=== PATIENT | female | born 1960 | race African-American/Black ===

== ENCOUNTER 2020-05-22 08:38 | Observation (INO) ==
[2020-05-22] MEDS ORDERED: Albuterol 2.5 MG/3 ML NEBULIZER IH PRN (09:26)
[2020-05-22] MEDS ORDERED: CeFAZolin Syr 2,000MG/20 ML 2,000 MG/20 ML SYRINGE IVPB ONE (09:26)
[2020-05-22] MEDS ORDERED: Ringers Solution, Lactated 1,000 ML IVC SCH (09:30)
[2020-05-22] MEDS ORDERED: Ethanol\\Acetic Acid\\Na Ace\\Ben 1,000 ML IRRIG.SOLN IR ONE (09:46)
[2020-05-22] MEDS ORDERED: Vancomycin 1,000 MG VIAL ONE (09:47)
[2020-05-22] MEDS ORDERED: Dexamethasone 4 MG/ML VIAL ONE ×2 (09:51→11:16)
[2020-05-22] MEDS ORDERED: Lidocaine -MPF 2% 2 ML VIAL ONE (09:51)
[2020-05-22] MEDS ORDERED: *HR* FentaNYL (PF) 100 MCG/2 ML VIAL ONE (10:03)
[2020-05-22] MEDS ORDERED: *HR* Midazolam HCl 2 MG/2 ML VIAL ONE (10:03)
[2020-05-22] MEDS ORDERED: Celecoxib 200 MG CAPSULE PO ONE (10:15)
[2020-05-22] MEDS ORDERED: *HR* OxyCODONE ER (12 HR) 10 MG TABLET PO ONE (10:15)
[2020-05-22] MEDS ORDERED: *HR* OxyCODONE Immed Rel 5 MG TABLET PO PRN (10:30)
[2020-05-22] MEDS ORDERED: Ondansetron 4 MG/2 ML VIAL IVP ONE (10:30)
[2020-05-22] MEDS ORDERED: Ondansetron 4 MG/2 ML VIAL ONE (11:16)
[2020-05-22] MEDS ORDERED: *HR* HYDROMORPHONE 2 MG/ML VIAL ONE (11:23)
[2020-05-22] MEDS ORDERED: Lidocaine HCL 4 ML Topical Solution (Laryng-O-Jet Kit Sterile Pak) TP ONE (11:27)
[2020-05-22] MEDS ORDERED: *HR* Labetalol 20 MG/4 ML SYRINGE IVP ONE (11:31)
[2020-05-22] MEDS: *HR* HYDROmorphone PF 0.5 MG/0.5 ML SYRINGE IVP PRN ×2 (12:37→12:47)
[2020-05-22] MEDS ORDERED: *HR* Dextrose 50 % in Water (Vial) 50 ML VIAL IVP PRN (13:44)
[2020-05-22] MEDS ORDERED: MOM Conc 10 ML UD.LIQ PO PRN (13:44)
[2020-05-22] MEDS ORDERED: *HR* Promethazine 25 MG/ML VIAL IVP PRN (13:44)
[2020-05-22] MEDS ORDERED: Naloxone 0.4 MG/ML INJ IVP PRN (13:44)
[2020-05-22] MEDS ORDERED: Dextrose Gel 15 GM/37.5 ML TUBE PO PRN ×2 (13:44)
[2020-05-22] MEDS ORDERED: Levalbuterol 1 PUFF INHALER IH PRN (13:44)
[2020-05-22] MEDS ORDERED: Sennosides 8.6 MG TABLET PO PRN (13:44)
[2020-05-22] MEDS ORDERED: D5% in Water 1,000 ML IVC PRN (13:44)
[2020-05-22 14:32] LABS: Hemoglobin 11.5 g/dL (11.5-15.4)
[2020-05-22] MEDS: *HR* OxyCODONE Immed Rel 5 MG TABLET PO PRN ×2 (16:49→23:52)
[2020-05-22] MEDS: Levalbuterol Neb 0.63 MG/3 ML IH SCH ×2 (17:47→21:46)
[2020-05-22] MEDS: Insulin LISPRO 300 UNITS/3 ML VIAL SQ SCH ×3 (18:40→20:22)
[2020-05-22] MEDS: Gabapentin 300 MG CAPSULE PO SCH ×2 (18:42→18:57)
[2020-05-22] MEDS: PHENobarbitaL 32.4 MG TABLET PO SCH ×2 (18:57→19:50)
[2020-05-22] MEDS: Ascorbic Acid 500 MG TABLET PO SCH (18:57)
[2020-05-22] MEDS: CeFAZolin 2 GM/120 ML BAG IVPB SCH (18:58)
[2020-05-22] MEDS: *HR* Buprenorphine HCl 8 MG TAB.SUBL SL SCH (19:50)
[2020-05-22] MEDS: Famotidine 20 MG TABLET PO SCH (19:50)
[2020-05-22] MEDS: HYDROcodone BIT/Homatropine 5 MG TABLET PO PRN (19:51)
[2020-05-23] MEDS: CeFAZolin 2 GM/120 ML BAG IVPB SCH (02:23)
[2020-05-23] MEDS: HYDROcodone BIT/Homatropine 5 MG TABLET PO PRN (02:33)
[2020-05-23 03:22] LABS: White Blood Count 6.3 K/mcL (4.3-11.1)
[2020-05-23 03:23] LABS: Basophils % 0.2 %; Eosinophils % 0.2 %; Hematocrit 28.2 % (35.3-44.9); Hemoglobin 9.5 g/dL (11.5-15.4); Immature Granulocytes % 0.3 % (0-4); Immature Platelets 3.9 % (1.1-6.1); Lymphocytes # 1.5 K/mcL (0.6-4.6); Mean Corpuscular HGB Conc 33.7 g/dL (31.6-35.5); Mean Corpuscular Hemoglobin 33.1 pg (28.0-33.3); Mean Corpuscular Volume 98.3 fL (83.0-100.0); Mean Platelet Volume 10.6 fL (9.4-12.4); Monocytes # 0.6 K/mcL (0.0-1.3); Monocytes % 9.4 %; Neutrophils # 4.2 K/mcL (1.6-8.9); Platelet Count 116 K/mcL (140-400); Red Blood Count 2.87 M/mcL (3.82-4.97); Segmented Neutrophils % 65.9 %
[2020-05-23 03:35] LABS: BUN/Creatinine Ratio 19 (6-26); Blood Urea Nitrogen 14 mg/dL (6-20); Calcium 8.9 mg/dL (8.6-10.3); Carbon Dioxide 27 mEq/L (23-29); Chloride 104 mEq/L (98-107); Glucose 124 mg/dL (70-105); Osmolality,Calculated 278 (280-300); Potassium 5.3 mEq/L (3.5-5.1); Sodium 133 mEq/L (136-145); eGFR For African Americans > 60 (> 60); eGFR For Non-African Americans > 60 (> 60)
[2020-05-23] MEDS: *HR* OxyCODONE Immed Rel 5 MG TABLET PO PRN ×3 (05:19→21:04)
[2020-05-23] MEDS: Levalbuterol Neb 0.63 MG/3 ML IH SCH ×3 (08:08→21:40)
[2020-05-23] MEDS: Celecoxib 200 MG CAPSULE PO SCH (08:13)
[2020-05-23] MEDS: Nicotine 14 MG PATCH.TD24 TD SCH (08:13)
[2020-05-23] MEDS: PHENobarbitaL 32.4 MG TABLET PO SCH ×3 (08:14→21:06)
[2020-05-23] MEDS: *HR* Buprenorphine HCl 8 MG TAB.SUBL SL SCH ×2 (08:14→21:08)
[2020-05-23] MEDS: Multivit/Ca/Min/Fe/FA 1 TAB TABLET PO SCH (08:14)
[2020-05-23] MEDS: Gabapentin 300 MG CAPSULE PO SCH ×3 (08:14→21:05)
[2020-05-23] MEDS: Ascorbic Acid 500 MG TABLET PO SCH ×2 (08:15→16:31)
[2020-05-23] MEDS: cloNIDine HCL 0.1 MG TABLET PO SCH (08:15)
[2020-05-23] MEDS: Insulin LISPRO 300 UNITS/3 ML VIAL SQ SCH ×4 (08:16→21:15)
[2020-05-23] MEDS: Aspirin Enteric Coated 81 MG Tablet PO SCH (08:26)
[2020-05-23] MEDS ORDERED: lisinopriL 10 MG TABLET PO SCH (09:00)
[2020-05-23] MEDS ORDERED: 0.9 % Sodium Chloride 1,000 ML IVC ONE (09:11)
[2020-05-23] MEDS: 0.9 % Sodium Chloride 1,000 ML IVC SCH (11:45)
[2020-05-23] MEDS: Ondansetron 4 MG/2 ML VIAL IVP PRN (16:29)
[2020-05-23] MEDS: Famotidine 20 MG TABLET PO SCH (21:07)
[2020-05-23] MEDS: lisinopriL 10 MG TABLET PO SCH (21:09)
[2020-05-24] MEDS: 0.9 % Sodium Chloride 1,000 ML IVC SCH ×2 (02:25→15:38)
[2020-05-24 05:27] LABS: Hemoglobin 10.1 g/dL (11.5-15.4); Mean Corpuscular Volume 96.5 fL (83.0-100.0); Mean Platelet Volume 10.6 fL (9.4-12.4); Red Cell Distribution Width 12.3 % (11.5-14.5)
[2020-05-24 05:28] LABS: Basophils % 0.4 %
[2020-05-24 05:30] LABS: Eosinophils # 0.1 K/mcL (0.0-0.6); Eosinophils % 2.7 %; Hematocrit 30.1 % (35.3-44.9); Immature Granulocytes % 0.4 % (0-4); Immature Platelets 4.9 % (1.1-6.1); Lymphocytes % 38.8 %; Mean Corpuscular HGB Conc 33.6 g/dL (31.6-35.5); Mean Corpuscular Hemoglobin 32.4 pg (28.0-33.3); Monocytes % 12.4 %; Neutrophils # 2.4 K/mcL (1.6-8.9); Red Blood Count 3.12 M/mcL (3.82-4.97); Segmented Neutrophils % 45.3 %; White Blood Count 5.2 K/mcL (4.3-11.1)
[2020-05-24 05:43] LABS: BUN/Creatinine Ratio 18 (6-26); Blood Urea Nitrogen 11 mg/dL (6-20); Calcium 8.6 mg/dL (8.6-10.3); Carbon Dioxide 20 mEq/L (23-29); Chloride 112 mEq/L (98-107); Glucose 89 mg/dL (70-105); Osmolality,Calculated 287 (280-300); Potassium 4.5 mEq/L (3.5-5.1); Sodium 139 mEq/L (136-145); eGFR For African Americans > 60 (> 60); eGFR For Non-African Americans > 60 (> 60)
[2020-05-24 06:00] LABS: Monocytes # 0.6 K/mcL (0.0-1.3); Platelet Count 85 K/mcL (140-400); Platelet Estimate Slight Decrease (Normal)
[2020-05-24] MEDS: *HR* OxyCODONE Immed Rel 5 MG TABLET PO PRN ×2 (06:45→17:26)
[2020-05-24] MEDS: Levalbuterol Neb 0.63 MG/3 ML IH SCH ×3 (07:14→22:11)
[2020-05-24] MEDS: Insulin LISPRO 300 UNITS/3 ML VIAL SQ SCH ×4 (09:01→20:42)
[2020-05-24] MEDS: *HR* Buprenorphine HCl 8 MG TAB.SUBL SL SCH ×2 (09:08→20:41)
[2020-05-24] MEDS: Multivit/Ca/Min/Fe/FA 1 TAB TABLET PO SCH (09:08)
[2020-05-24] MEDS: PHENobarbitaL 32.4 MG TABLET PO SCH ×3 (09:09→20:41)
[2020-05-24] MEDS: cloNIDine HCL 0.1 MG TABLET PO SCH (09:09)
[2020-05-24] MEDS: Aspirin Enteric Coated 81 MG Tablet PO SCH (09:09)
[2020-05-24] MEDS: Celecoxib 200 MG CAPSULE PO SCH (09:09)
[2020-05-24] MEDS: Gabapentin 300 MG CAPSULE PO SCH ×3 (09:10→20:42)
[2020-05-24] MEDS: Nicotine 14 MG PATCH.TD24 TD SCH (09:10)
[2020-05-24] MEDS: Ascorbic Acid 500 MG TABLET PO SCH ×2 (09:10→17:18)
[2020-05-24] MEDS: HYDROcodone BIT/Homatropine 5 MG TABLET PO PRN (12:28)
[2020-05-24] MEDS: Famotidine 20 MG TABLET PO SCH (20:42)
[2020-05-24] MEDS: lisinopriL 10 MG TABLET PO SCH (20:42)
[2020-05-24] MEDS: Ondansetron 4 MG/2 ML VIAL IVP PRN (21:54)
[2020-05-25] MEDS: *HR* OxyCODONE Immed Rel 5 MG TABLET PO PRN ×4 (00:22→19:14)
[2020-05-25] MEDS: 0.9 % Sodium Chloride 1,000 ML IVC SCH (04:30)
[2020-05-25] MEDS: Ondansetron 4 MG/2 ML VIAL IVP PRN (05:59)
[2020-05-25] MEDS: Levalbuterol Neb 0.63 MG/3 ML IH SCH ×3 (08:03→22:27)
[2020-05-25] MEDS: Aspirin Enteric Coated 81 MG Tablet PO SCH (09:16)
[2020-05-25] MEDS: Gabapentin 300 MG CAPSULE PO SCH ×3 (09:16→21:28)
[2020-05-25] MEDS: Ascorbic Acid 500 MG TABLET PO SCH ×2 (09:16→19:13)
[2020-05-25] MEDS: PHENobarbitaL 32.4 MG TABLET PO SCH ×3 (09:18→21:28)
[2020-05-25] MEDS: Celecoxib 200 MG CAPSULE PO SCH (09:19)
[2020-05-25] MEDS: Multivit/Ca/Min/Fe/FA 1 TAB TABLET PO SCH (09:19)
[2020-05-25] MEDS: cloNIDine HCL 0.1 MG TABLET PO SCH ×2 (09:20→21:46)
[2020-05-25] MEDS: *HR* Buprenorphine HCl 8 MG TAB.SUBL SL SCH ×2 (09:20→19:12)
[2020-05-25] MEDS: Nicotine 14 MG PATCH.TD24 TD SCH (09:20)
[2020-05-25] MEDS ORDERED: traZODone 50 MG TABLET PO PRN (12:46)
[2020-05-25] MEDS: HYDROcodone BIT/Homatropine 5 MG TABLET PO PRN (14:44)
[2020-05-25] MEDS ORDERED: ARIPiprazole 5 MG TABLET PO SCH (21:00)
[2020-05-25] MEDS: Famotidine 20 MG TABLET PO SCH (21:28)
[2020-05-25] MEDS: Insulin LISPRO 300 UNITS/3 ML VIAL SQ SCH ×3 (21:29→21:46)
[2020-05-25] MEDS: lisinopriL 10 MG TABLET PO SCH (21:42)
[2020-05-26] MEDS ORDERED: *HR* LORazepam 2 MG/ML VIAL IVP ONE (00:35)
[2020-05-26] MEDS ORDERED: *HR* LORazepam 2 MG/ML VIAL ONE (00:35)
[2020-05-26 02:35] LABS: Bilirubin,Urine Negative (Negative); Blood,Urine Negative (Negative); Clarity,Urine Clear (Clear); Color,Urine Colorless (Yellow); Glucose,Urine (UA) Normal (Normal); Ketones,Urine Negative (Negative); Leukocyte Esterase,Urine Negative (Negative); Nitrite,Urine Negative (Negative); PH,Urine 6.5 pH Units (5.0-8.0); Protein,Urine Negative (Neg-Trace); Specific Gravity,Urine 1.009 (1.010-1.025); Urobilinogen,Urine Normal (Normal)
[2020-05-26 03:27] LABS: Basophils % 0.3 %; Eosinophils # 0.2 K/mcL (0.0-0.6); Eosinophils % 5.6 %; Hematocrit 25.1 % (35.3-44.9); Lymphocytes # 1.5 K/mcL (0.6-4.6); Mean Corpuscular HGB Conc 33.1 g/dL (31.6-35.5); Mean Corpuscular Hemoglobin 32.3 pg (28.0-33.3); Mean Corpuscular Volume 97.7 fL (83.0-100.0); Mean Platelet Volume 10.5 fL (9.4-12.4); Monocytes # 0.4 K/mcL (0.0-1.3); Monocytes % 9.4 %; Neutrophils # 1.7 K/mcL (1.6-8.9); Platelet Count 109 K/mcL (140-400); Red Blood Count 2.57 M/mcL (3.82-4.97); Red Cell Distribution Width 12.2 % (11.5-14.5); Segmented Neutrophils % 45.7 %; White Blood Count 3.7 K/mcL (4.3-11.1)
[2020-05-26 03:28] LABS: Hemoglobin 8.3 g/dL (11.5-15.4)
[2020-05-26 03:30] LABS: Prothrombin Time 11.2 Seconds (9.4-12.1)
[2020-05-26 03:32] LABS: Activated Partial Thrombo Time 25.5 Seconds (26.0-36.0)
[2020-05-26 03:44] LABS: ABG Base Excess 2 mEq/L (-2 to 3); ABG HCO3 27 mEq/L (21-27); ABG Oxygen Saturation 98 % (95-98); ABG PCO2 43 mmHg (35-45); ABG PH 7.41 pH Units (7.32-7.45); ABG PO2 112 mmHg (85-104); ABG TCO2 28 mEq/L (20-26)
[2020-05-26 03:50] LABS: Alanine Aminotransferase 12 Units/L (7-52); Alkaline Phosphatase 80 Units/L (34-104); Aspartate Amino Transferase 26 Units/L (13-39); BUN/Creatinine Ratio 15 (6-26); Bilirubin,Total 0.4 mg/dL (0.3-1.0); Blood Urea Nitrogen 9 mg/dL (6-20); Carbon Dioxide 26 mEq/L (23-29); Chloride 108 mEq/L (98-107); Globulin 2.9 g/dL (2.4-3.5); Glucose 98 mg/dL (70-105); Osmolality,Calculated 287 (280-300); Potassium 4.1 mEq/L (3.5-5.1); Sodium 139 mEq/L (136-145); Total Protein 5.9 g/dL (6.4-8.9); eGFR For African Americans > 60 (> 60); eGFR For Non-African Americans > 60 (> 60)
[2020-05-26 04:35] LABS: Prolactin 13.01 ng/mL (3.80-23.20)
[2020-05-26] MEDS ORDERED: *HR* LORazepam 2 MG/ML VIAL IVP PRN ×2 (04:45→12:02)
[2020-05-26] MEDS: *HR* Buprenorphine HCl 8 MG TAB.SUBL SL SCH ×2 (05:26→17:16)
[2020-05-26] MEDS: Levalbuterol Neb 0.63 MG/3 ML IH SCH ×3 (07:40→23:24)
[2020-05-26] MEDS: cloNIDine HCL 0.1 MG TABLET PO SCH (07:45)
[2020-05-26] MEDS: Multivit/Ca/Min/Fe/FA 1 TAB TABLET PO SCH (07:45)
[2020-05-26] MEDS: Gabapentin 300 MG CAPSULE PO SCH ×3 (07:45→21:14)
[2020-05-26] MEDS: Celecoxib 200 MG CAPSULE PO SCH (07:45)
[2020-05-26] MEDS: PHENobarbitaL 32.4 MG TABLET PO SCH ×2 (07:46→21:29)
[2020-05-26] MEDS: Aspirin Enteric Coated 81 MG Tablet PO SCH (07:46)
[2020-05-26] MEDS: Ascorbic Acid 500 MG TABLET PO SCH ×2 (07:46→15:45)
[2020-05-26] MEDS: Nicotine 14 MG PATCH.TD24 TD SCH (07:46)
[2020-05-26 07:49] LABS: Hematocrit 25.3 % (35.3-44.9); Hemoglobin 8.5 g/dL (11.5-15.4)
[2020-05-26] MEDS: Insulin LISPRO 300 UNITS/3 ML VIAL SQ SCH ×4 (07:55→21:30)
[2020-05-26] MEDS ORDERED: Morphine Sulfate 2 MG/ML SYRINGE IVP ONE (08:18)
[2020-05-26] MEDS ORDERED: *HR* OxyCODONE/APAP 7.5/325 TABLET PO PRN (10:06)
[2020-05-26] MEDS: levETIRAcetam 1,000 MG in 0.9 % Sodium Chloride 100 ML IVPB SCH ×2 (10:53→21:13)
[2020-05-26] MEDS: Piperacillin/Tazobactam 3.375 GM in 0.9 % Sodium Chloride Mini Bag 100 ML IVPB SCH ×3 (10:53→23:59)
[2020-05-26] MEDS: Vancomycin 1,250 MG/262.5 ML IV.SOLN IVPB SCH ×2 (10:53→21:13)
[2020-05-26 11:45] LABS: Hematocrit 28.8 % (35.3-44.9); Hemoglobin 9.8 g/dL (11.5-15.4)
[2020-05-26 15:22] LABS: Hemoglobin 9.3 g/dL (11.5-15.4)
[2020-05-26 15:24] LABS: Hematocrit 27.2 % (35.3-44.9)
[2020-05-26] MEDS: *HR* OxyCODONE Immed Rel 5 MG TABLET PO PRN ×2 (15:45→21:14)
[2020-05-26 20:21] LABS: Hematocrit 26.5 % (35.3-44.9); Hemoglobin 9.2 g/dL (11.5-15.4)
[2020-05-26] MEDS: Ringers Solution, Lactated 1,000 ML IVC SCH (20:35)
[2020-05-26] MEDS: 0.9 % Sodium Chloride 1,000 ML IVC SCH (20:36)
[2020-05-26] MEDS ORDERED: amLODIPine 5 MG TABLET PO SCH (21:00)
[2020-05-26] MEDS: Famotidine 20 MG TABLET PO SCH (21:13)
[2020-05-27] MEDS: Ondansetron 4 MG/2 ML VIAL IVP PRN (00:06)
[2020-05-27] MEDS: *HR* OxyCODONE Immed Rel 5 MG TABLET PO PRN ×4 (01:29→13:40)
[2020-05-27] MEDS ORDERED: Acetaminophen 325 MG TABLET PO ONE (04:59)
[2020-05-27] MEDS: *HR* Buprenorphine HCl 8 MG TAB.SUBL SL SCH (05:11)
[2020-05-27 06:54] VITALS: BP 110/69
[2020-05-27] MEDS: Levalbuterol Neb 0.63 MG/3 ML IH SCH (08:09)
[2020-05-27] MEDS: cloNIDine HCL 0.1 MG TABLET PO SCH (09:20)
[2020-05-27] MEDS: Gabapentin 300 MG CAPSULE PO SCH (09:20)
[2020-05-27] MEDS: Ascorbic Acid 500 MG TABLET PO SCH (09:20)
[2020-05-27] MEDS: Aspirin Enteric Coated 81 MG Tablet PO SCH (09:20)
[2020-05-27] MEDS: Nicotine 14 MG PATCH.TD24 TD SCH (09:21)
[2020-05-27] MEDS: Multivit/Ca/Min/Fe/FA 1 TAB TABLET PO SCH (09:21)
[2020-05-27] MEDS: PHENobarbitaL 32.4 MG TABLET PO SCH (09:21)
[2020-05-27] MEDS: Insulin LISPRO 300 UNITS/3 ML VIAL SQ SCH ×2 (09:22→13:41)
[2020-05-27] MEDS: Piperacillin/Tazobactam 3.375 GM in 0.9 % Sodium Chloride Mini Bag 100 ML IVPB SCH (09:23)
[2020-05-27] MEDS: Vancomycin 1,250 MG/262.5 ML IV.SOLN IVPB SCH (09:28)
[2020-05-27] MEDS: levETIRAcetam 1,000 MG in 0.9 % Sodium Chloride 100 ML IVPB SCH (09:28)
== END 2020-05-27 14:01 | disposition home health service (06) ==
LOC: SAMDAY 08:38 → 3NENU 08:38
PROVIDERS: ADMIT Orthopaedic Surgery; ATTEND Orthopaedic Surgery